=== PATIENT | male | born 1950 | race Caucasian/White ===

== ENCOUNTER 2023-02-11 12:51 | Inpatient (IN) | payer MEDICARE, BC ==
[2023-02-11] MEDS ORDERED: Acetaminophen 325 MG Tab PO PRN (13:50)
[2023-02-11] MEDS ORDERED: Ondansetron 4 MG Tab.DIS PO PRN (13:50)
[2023-02-11] MEDS ORDERED: Melatonin 3 MG Tab PO PRN (13:59)
[2023-02-11] MEDS ORDERED: Albuterol 0.083% 2.5 MG/3 ML Neb Soln INH PRN (13:59)
[2023-02-11] MEDS ORDERED: Vancomycin 1 GM SDV IV SCH (14:00)
[2023-02-11] MEDS ORDERED: Enoxaparin 30 MG/0.3 ML Syringe SUBCUT SCH (14:00)
[2023-02-11] MEDS ORDERED: 50% Dextrose in Water 50 ML Syringe IV PRN (14:03)
[2023-02-11] MEDS ORDERED: Glucose Gel 15 GM in 37.5 GM Tube PO PRN (14:03)
[2023-02-11 14:12] LABS: HEMATOCRIT 27.3 % (38.4-49.7); HEMOGLOBIN 8.5 g/dL (12.9-16.9); MEAN CORPUSCULAR HEMOGLOBIN 29.7 pg (31.6-35.5); MEAN CORPUSCULAR HGB CONC 31.1 g/dL (31.6-35.5); MEAN CORPUSCULAR VOLUME 95.5 fL (81.4-99.0); RED BLOOD CELL COUNT 2.86 M/uL (4.14-5.76); WHITE BLOOD CELL COUNT,WBC 6.6 K/uL (3.2-11.0)
[2023-02-11 14:40] LABS: A/G RATIO 0.8 (1.2-2.2); ALANINE AMINOTRANSFERASE,ALT 22 U/L (12-78); ALBUMIN 2.8 g/dL (3.4-5.0); ALKALINE PHOSPHATASE 126 U/L (46-116); ANION GAP 9.9 mmol/L (5.0-14.0); ASPARTATE AMNIOTRANSFERASE,AST 27 U/L (15-37); BILIRUBIN TOTAL 0.6 mg/dL (0.2-1.0); BLOOD UREA NITROGEN,BUN 29 mg/dL (7-18); CALCIUM 8.1 mg/dL (8.5-10.1); CARBON DIOXIDE,CO2 28 mmol/L (21-32); CHLORIDE,CL 104 mmol/L (100-108); CREATININE 2.2 mg/dL (0.8-1.3); ESTIMATED GFR 31 mL/min (>60); GLUCOSE RANDOM 193 mg/dL (74-106); POTASSIUM,K 4.1 mmol/L (3.6-5.2); PROTEIN TOTAL,TP 6.5 g/dL (6.4-8.2); SODIUM,NA 142 mmol/L (140-148)
[2023-02-11] MEDS ORDERED: Methocarbamol 500 MG Tab PO PRN (15:26)
[2023-02-11] MEDS ORDERED: Simethicone 125 MG Tab.Chew PO PRN (15:33)
[2023-02-11] MEDS: Spironolactone 25 MG Tab PO SCH (16:14)
[2023-02-11] MEDS: Gabapentin 100 MG Cap PO SCH ×2 (16:14→20:50)
[2023-02-11] MEDS: Sucralfate 1 GM Tab PO SCH (16:16)
[2023-02-11] MEDS: Insulin Lispro 100 Unit/ML 3 ML KwikPen SUBCUT SCH ×2 (17:30→22:12)
[2023-02-11] MEDS: Sennosides 8.6 MG Tab PO SCH (20:49)
[2023-02-11] MEDS: Apixaban 5 MG Tab PO SCH (20:49)
[2023-02-11] MEDS: levETIRAcetam 250 MG Tab PO SCH (20:49)
[2023-02-11] MEDS: Potassium Chloride 20 MEQ Tab.ER PO SCH (20:50)
[2023-02-11] MEDS: traZODone 50 MG Tab PO SCH (20:51)
[2023-02-11] MEDS: Insulin Glargine,Human Rec. Analog 100 Units/ML 3 ML Pen SUBCUT SCH (20:52)
[2023-02-12] MEDS: Insulin Lispro 100 Unit/ML 3 ML KwikPen SUBCUT SCH ×4 (08:07→21:35)
[2023-02-12] MEDS: Sucralfate 1 GM Tab PO SCH ×2 (08:08→16:13)
[2023-02-12] MEDS: Potassium Chloride 20 MEQ Tab.ER PO SCH ×2 (08:10→20:55)
[2023-02-12] MEDS: Amiodarone 200 MG Tab PO SCH (08:11)
[2023-02-12] MEDS: Spironolactone 25 MG Tab PO SCH (08:11)
[2023-02-12] MEDS: Apixaban 5 MG Tab PO SCH ×2 (08:12→20:56)
[2023-02-12] MEDS: Sennosides 8.6 MG Tab PO SCH ×2 (08:13→20:56)
[2023-02-12] MEDS: Pantoprazole 40 MG Tab.CR PO SCH (08:13)
[2023-02-12] MEDS: Clopidogrel 75 MG Tab PO SCH (08:14)
[2023-02-12] MEDS: Ferrous Sulfate 325 MG Tab PO SCH (08:15)
[2023-02-12] MEDS: levETIRAcetam 250 MG Tab PO SCH ×2 (08:15→20:55)
[2023-02-12] MEDS: atorvaSTATin 20 MG Tab PO SCH (08:15)
[2023-02-12] MEDS: Multivitamins with Iron/Calcium/Folic Acid/Minerals Tab PO SCH (08:17)
[2023-02-12] MEDS: Gabapentin 100 MG Cap PO SCH ×3 (08:22→20:55)
[2023-02-12] MEDS: traZODone 50 MG Tab PO SCH (20:56)
[2023-02-12] MEDS: Insulin Glargine,Human Rec. Analog 100 Units/ML 3 ML Pen SUBCUT SCH (21:37)
[2023-02-13] MEDS: Insulin Lispro 100 Unit/ML 3 ML KwikPen SUBCUT SCH ×4 (07:49→21:06)
[2023-02-13] MEDS: Sucralfate 1 GM Tab PO SCH ×2 (07:50→16:58)
[2023-02-13] MEDS: Pantoprazole 40 MG Tab.CR PO SCH ×2 (07:50→08:00)
[2023-02-13] MEDS: levETIRAcetam 250 MG Tab PO SCH ×2 (07:59→21:05)
[2023-02-13] MEDS: Gabapentin 100 MG Cap PO SCH ×3 (08:00→21:05)
[2023-02-13] MEDS: Amiodarone 200 MG Tab PO SCH (08:00)
[2023-02-13] MEDS: atorvaSTATin 20 MG Tab PO SCH (08:00)
[2023-02-13] MEDS: Multivitamins with Iron/Calcium/Folic Acid/Minerals Tab PO SCH (08:00)
[2023-02-13] MEDS: Spironolactone 25 MG Tab PO SCH (08:00)
[2023-02-13] MEDS: Ferrous Sulfate 325 MG Tab PO SCH (08:00)
[2023-02-13] MEDS: Sennosides 8.6 MG Tab PO SCH ×2 (08:00→21:06)
[2023-02-13] MEDS: Apixaban 5 MG Tab PO SCH ×2 (08:01→21:05)
[2023-02-13] MEDS: Clopidogrel 75 MG Tab PO SCH (08:01)
[2023-02-13] MEDS: Potassium Chloride 20 MEQ Tab.ER PO SCH ×2 (08:01→21:05)
[2023-02-13] MEDS: Insulin Glargine,Human Rec. Analog 100 Units/ML 3 ML Pen SUBCUT SCH (21:04)
[2023-02-13] MEDS: traZODone 50 MG Tab PO SCH (21:05)
[2023-02-14] MEDS: Multivitamins with Iron/Calcium/Folic Acid/Minerals Tab PO SCH (08:03)
[2023-02-14] MEDS: Gabapentin 100 MG Cap PO SCH ×3 (08:04→21:00)
[2023-02-14] MEDS: Clopidogrel 75 MG Tab PO SCH (08:04)
[2023-02-14] MEDS: levETIRAcetam 250 MG Tab PO SCH ×2 (08:04→20:58)
[2023-02-14] MEDS: Spironolactone 25 MG Tab PO SCH (08:04)
[2023-02-14] MEDS: atorvaSTATin 20 MG Tab PO SCH (08:04)
[2023-02-14] MEDS: Sennosides 8.6 MG Tab PO SCH ×2 (08:04→21:00)
[2023-02-14] MEDS: Potassium Chloride 20 MEQ Tab.ER PO SCH ×2 (08:04→20:59)
[2023-02-14] MEDS: Sucralfate 1 GM Tab PO SCH ×2 (08:04→17:16)
[2023-02-14] MEDS: Amiodarone 200 MG Tab PO SCH (08:05)
[2023-02-14] MEDS: Ferrous Sulfate 325 MG Tab PO SCH (08:05)
[2023-02-14] MEDS: Pantoprazole 40 MG Tab.CR PO SCH (08:05)
[2023-02-14] MEDS: Apixaban 5 MG Tab PO SCH ×2 (08:05→20:58)
[2023-02-14] MEDS: Insulin Lispro 100 Unit/ML 3 ML KwikPen SUBCUT SCH ×4 (08:09→20:53)
[2023-02-14 17:10] LABS: CREATININE 2.1 mg/dL (0.8-1.3); EST CRCL DRUG DOSING (CG) 32.83 mL/min; VANCOMYCIN TROUGH 14.6 ug/mL (10.0-20.0)
[2023-02-14] MEDS: Insulin Glargine,Human Rec. Analog 100 Units/ML 3 ML Pen SUBCUT SCH (20:59)
[2023-02-14] MEDS: traZODone 50 MG Tab PO SCH (21:00)
[2023-02-15] MEDS: Sucralfate 1 GM Tab PO SCH ×2 (07:54→16:17)
[2023-02-15] MEDS: Insulin Lispro 100 Unit/ML 3 ML KwikPen SUBCUT SCH ×4 (07:54→20:44)
[2023-02-15] MEDS: Ferrous Sulfate 325 MG Tab PO SCH (08:04)
[2023-02-15] MEDS: Gabapentin 100 MG Cap PO SCH ×3 (08:04→20:41)
[2023-02-15] MEDS: Spironolactone 25 MG Tab PO SCH (08:04)
[2023-02-15] MEDS: levETIRAcetam 250 MG Tab PO SCH ×2 (08:04→20:43)
[2023-02-15] MEDS: Multivitamins with Iron/Calcium/Folic Acid/Minerals Tab PO SCH (08:05)
[2023-02-15] MEDS: atorvaSTATin 20 MG Tab PO SCH (08:05)
[2023-02-15] MEDS: Apixaban 5 MG Tab PO SCH ×2 (08:05→20:42)
[2023-02-15] MEDS: Sennosides 8.6 MG Tab PO SCH ×2 (08:05→20:42)
[2023-02-15] MEDS: Potassium Chloride 20 MEQ Tab.ER PO SCH ×2 (08:05→20:42)
[2023-02-15] MEDS: Clopidogrel 75 MG Tab PO SCH (08:05)
[2023-02-15] MEDS: Amiodarone 200 MG Tab PO SCH (08:05)
[2023-02-15] MEDS: Pantoprazole 40 MG Tab.CR PO SCH (08:06)
[2023-02-15] MEDS: traZODone 50 MG Tab PO SCH (20:42)
[2023-02-15] MEDS: Insulin Glargine,Human Rec. Analog 100 Units/ML 3 ML Pen SUBCUT SCH (20:44)
[2023-02-16] MEDS: Insulin Lispro 100 Unit/ML 3 ML KwikPen SUBCUT SCH ×4 (07:54→21:28)
[2023-02-16] MEDS: Gabapentin 100 MG Cap PO SCH ×3 (08:01→20:18)
[2023-02-16] MEDS: Sucralfate 1 GM Tab PO SCH ×2 (08:01→17:15)
[2023-02-16] MEDS: levETIRAcetam 250 MG Tab PO SCH ×2 (08:01→20:18)
[2023-02-16] MEDS: Spironolactone 25 MG Tab PO SCH (08:01)
[2023-02-16] MEDS: Clopidogrel 75 MG Tab PO SCH (08:01)
[2023-02-16] MEDS: Multivitamins with Iron/Calcium/Folic Acid/Minerals Tab PO SCH (08:01)
[2023-02-16] MEDS: atorvaSTATin 20 MG Tab PO SCH (08:02)
[2023-02-16] MEDS: Pantoprazole 40 MG Tab.CR PO SCH (08:02)
[2023-02-16] MEDS: Amiodarone 200 MG Tab PO SCH (08:02)
[2023-02-16] MEDS: Ferrous Sulfate 325 MG Tab PO SCH (08:02)
[2023-02-16] MEDS: Apixaban 5 MG Tab PO SCH ×2 (08:02→20:18)
[2023-02-16] MEDS: Potassium Chloride 20 MEQ Tab.ER PO SCH ×2 (08:02→20:18)
[2023-02-16] MEDS: Sennosides 8.6 MG Tab PO SCH ×2 (08:03→20:18)
[2023-02-16] MEDS: traZODone 50 MG Tab PO SCH (20:18)
[2023-02-16] MEDS: Insulin Glargine,Human Rec. Analog 100 Units/ML 3 ML Pen SUBCUT SCH (21:26)
[2023-02-17 06:21] LABS: EST CRCL DRUG DOSING (CG) 34.56 mL/min; VANCOMYCIN RANDOM 17.7 ug/mL (0.0-50.0)
[2023-02-17] MEDS: Insulin Lispro 100 Unit/ML 3 ML KwikPen SUBCUT SCH ×4 (08:37→21:24)
[2023-02-17] MEDS: Sucralfate 1 GM Tab PO SCH ×2 (08:42→16:53)
[2023-02-17] MEDS: Amiodarone 200 MG Tab PO SCH (08:43)
[2023-02-17] MEDS: Spironolactone 25 MG Tab PO SCH (08:43)
[2023-02-17] MEDS: Ferrous Sulfate 325 MG Tab PO SCH (08:46)
[2023-02-17] MEDS: Apixaban 5 MG Tab PO SCH ×2 (08:46→20:17)
[2023-02-17] MEDS: levETIRAcetam 250 MG Tab PO SCH ×2 (08:47→20:18)
[2023-02-17] MEDS: Potassium Chloride 20 MEQ Tab.ER PO SCH ×2 (08:48→20:18)
[2023-02-17] MEDS: atorvaSTATin 20 MG Tab PO SCH (08:48)
[2023-02-17] MEDS: Gabapentin 100 MG Cap PO SCH ×3 (08:49→20:18)
[2023-02-17] MEDS: Pantoprazole 40 MG Tab.CR PO SCH (08:50)
[2023-02-17] MEDS: Clopidogrel 75 MG Tab PO SCH (08:50)
[2023-02-17] MEDS: Multivitamins with Iron/Calcium/Folic Acid/Minerals Tab PO SCH (08:51)
[2023-02-17] MEDS: Sennosides 8.6 MG Tab PO SCH ×2 (08:51→20:18)
[2023-02-17] MEDS: traZODone 50 MG Tab PO SCH (20:19)
[2023-02-17] MEDS: Vancomycin 0.9 GM in Sodium Chloride 0.9% 250 ML IV SCH (21:18)
[2023-02-17] MEDS: Insulin Glargine,Human Rec. Analog 100 Units/ML 3 ML Pen SUBCUT SCH (21:23)
[2023-02-18] MEDS: Amiodarone 200 MG Tab PO SCH (08:37)
[2023-02-18] MEDS: Spironolactone 25 MG Tab PO SCH (08:37)
[2023-02-18] MEDS: Sucralfate 1 GM Tab PO SCH ×2 (08:37→17:42)
[2023-02-18] MEDS: Apixaban 5 MG Tab PO SCH ×2 (08:38→21:18)
[2023-02-18] MEDS: Gabapentin 100 MG Cap PO SCH ×3 (08:39→21:18)
[2023-02-18] MEDS: Ferrous Sulfate 325 MG Tab PO SCH (08:39)
[2023-02-18] MEDS: Pantoprazole 40 MG Tab.CR PO SCH (08:39)
[2023-02-18] MEDS: Potassium Chloride 20 MEQ Tab.ER PO SCH ×2 (08:39→21:18)
[2023-02-18] MEDS: atorvaSTATin 20 MG Tab PO SCH (08:39)
[2023-02-18] MEDS: Clopidogrel 75 MG Tab PO SCH (08:39)
[2023-02-18] MEDS: levETIRAcetam 250 MG Tab PO SCH ×2 (08:39→21:18)
[2023-02-18] MEDS: Sennosides 8.6 MG Tab PO SCH ×2 (08:40→21:19)
[2023-02-18] MEDS: Multivitamins with Iron/Calcium/Folic Acid/Minerals Tab PO SCH (08:40)
[2023-02-18] MEDS: Insulin Lispro 100 Unit/ML 3 ML KwikPen SUBCUT SCH ×4 (08:43→21:16)
[2023-02-18] MEDS: Vancomycin 0.9 GM in Sodium Chloride 0.9% 250 ML IV SCH (19:57)
[2023-02-18] MEDS: Insulin Glargine,Human Rec. Analog 100 Units/ML 3 ML Pen SUBCUT SCH (21:17)
[2023-02-18] MEDS: traZODone 50 MG Tab PO SCH (21:19)
[2023-02-19] MEDS: Insulin Lispro 100 Unit/ML 3 ML KwikPen SUBCUT SCH ×4 (08:09→21:12)
[2023-02-19] MEDS: Sennosides 8.6 MG Tab PO SCH ×2 (08:10→20:26)
[2023-02-19] MEDS: Sucralfate 1 GM Tab PO SCH ×2 (08:10→17:06)
[2023-02-19] MEDS: Amiodarone 200 MG Tab PO SCH (08:10)
[2023-02-19] MEDS: Potassium Chloride 20 MEQ Tab.ER PO SCH ×2 (08:10→20:25)
[2023-02-19] MEDS: Clopidogrel 75 MG Tab PO SCH (08:10)
[2023-02-19] MEDS: Gabapentin 100 MG Cap PO SCH ×3 (08:10→20:25)
[2023-02-19] MEDS: Multivitamins with Iron/Calcium/Folic Acid/Minerals Tab PO SCH (08:10)
[2023-02-19] MEDS: Apixaban 5 MG Tab PO SCH ×2 (08:10→20:26)
[2023-02-19] MEDS: levETIRAcetam 250 MG Tab PO SCH ×2 (08:11→20:26)
[2023-02-19] MEDS: atorvaSTATin 20 MG Tab PO SCH (08:11)
[2023-02-19] MEDS: Spironolactone 25 MG Tab PO SCH (08:11)
[2023-02-19] MEDS: Pantoprazole 40 MG Tab.CR PO SCH (08:11)
[2023-02-19] MEDS: Ferrous Sulfate 325 MG Tab PO SCH (08:11)
[2023-02-19] MEDS: Vancomycin 0.9 GM in Sodium Chloride 0.9% 250 ML IV SCH (20:21)
[2023-02-19] MEDS: traZODone 50 MG Tab PO SCH (20:27)
[2023-02-19] MEDS: Insulin Glargine,Human Rec. Analog 100 Units/ML 3 ML Pen SUBCUT SCH (21:11)
[2023-02-20] MEDS: Insulin Lispro 100 Unit/ML 3 ML KwikPen SUBCUT SCH ×4 (07:51→21:24)
[2023-02-20] MEDS: Sucralfate 1 GM Tab PO SCH ×2 (07:53→17:17)
[2023-02-20] MEDS: Spironolactone 25 MG Tab PO SCH (08:31)
[2023-02-20] MEDS: levETIRAcetam 250 MG Tab PO SCH ×2 (08:31→20:24)
[2023-02-20] MEDS: Sennosides 8.6 MG Tab PO SCH ×2 (08:31→20:25)
[2023-02-20] MEDS: Ferrous Sulfate 325 MG Tab PO SCH (08:31)
[2023-02-20] MEDS: Gabapentin 100 MG Cap PO SCH ×3 (08:31→20:24)
[2023-02-20] MEDS: Pantoprazole 40 MG Tab.CR PO SCH (08:31)
[2023-02-20] MEDS: atorvaSTATin 20 MG Tab PO SCH (08:32)
[2023-02-20] MEDS: Multivitamins with Iron/Calcium/Folic Acid/Minerals Tab PO SCH (08:32)
[2023-02-20] MEDS: Clopidogrel 75 MG Tab PO SCH (08:32)
[2023-02-20] MEDS: Potassium Chloride 20 MEQ Tab.ER PO SCH ×2 (08:32→20:24)
[2023-02-20] MEDS: Apixaban 5 MG Tab PO SCH ×2 (08:32→20:25)
[2023-02-20] MEDS: Amiodarone 200 MG Tab PO SCH (08:35)
[2023-02-20] MEDS: Vancomycin 0.9 GM in Sodium Chloride 0.9% 250 ML IV SCH (20:22)
[2023-02-20] MEDS: traZODone 50 MG Tab PO SCH (20:24)
[2023-02-20] MEDS: Insulin Glargine,Human Rec. Analog 100 Units/ML 3 ML Pen SUBCUT SCH (21:31)
[2023-02-21 06:45] LABS: EST CRCL DRUG DOSING (CG) 34.56 mL/min
[2023-02-21] MEDS: Insulin Lispro 100 Unit/ML 3 ML KwikPen SUBCUT SCH ×4 (07:50→21:21)
[2023-02-21] MEDS: Sucralfate 1 GM Tab PO SCH ×2 (07:51→16:59)
[2023-02-21] MEDS: Pantoprazole 40 MG Tab.CR PO SCH (08:06)
[2023-02-21] MEDS: Sennosides 8.6 MG Tab PO SCH ×2 (08:06→20:00)
[2023-02-21] MEDS: Ferrous Sulfate 325 MG Tab PO SCH (08:06)
[2023-02-21] MEDS: Multivitamins with Iron/Calcium/Folic Acid/Minerals Tab PO SCH (08:06)
[2023-02-21] MEDS: Clopidogrel 75 MG Tab PO SCH (08:06)
[2023-02-21] MEDS: Spironolactone 25 MG Tab PO SCH (08:06)
[2023-02-21] MEDS: Potassium Chloride 20 MEQ Tab.ER PO SCH ×2 (08:06→20:00)
[2023-02-21] MEDS: Amiodarone 200 MG Tab PO SCH (08:06)
[2023-02-21] MEDS: levETIRAcetam 250 MG Tab PO SCH ×2 (08:07→19:59)
[2023-02-21] MEDS: Apixaban 5 MG Tab PO SCH ×2 (08:07→19:59)
[2023-02-21] MEDS: Gabapentin 100 MG Cap PO SCH ×3 (08:08→19:59)
[2023-02-21] MEDS: atorvaSTATin 20 MG Tab PO SCH (08:08)
[2023-02-21] MEDS: Bisacodyl 5 MG Tab PO SCH ×2 (11:08→19:59)
[2023-02-21] MEDS: traZODone 50 MG Tab PO SCH (19:59)
[2023-02-21] MEDS: Insulin Glargine,Human Rec. Analog 100 Units/ML 3 ML Pen SUBCUT SCH (21:21)
[2023-02-22] MEDS: Insulin Lispro 100 Unit/ML 3 ML KwikPen SUBCUT SCH ×4 (08:01→21:45)
[2023-02-22] MEDS: Bisacodyl 5 MG Tab PO SCH ×2 (08:03→20:39)
[2023-02-22] MEDS: Gabapentin 100 MG Cap PO SCH ×3 (08:03→20:39)
[2023-02-22] MEDS: Sennosides 8.6 MG Tab PO SCH ×2 (08:03→20:39)
[2023-02-22] MEDS: Amiodarone 200 MG Tab PO SCH (08:04)
[2023-02-22] MEDS: Clopidogrel 75 MG Tab PO SCH (08:04)
[2023-02-22] MEDS: Sucralfate 1 GM Tab PO SCH ×2 (08:04→17:07)
[2023-02-22] MEDS: levETIRAcetam 250 MG Tab PO SCH ×2 (08:04→20:40)
[2023-02-22] MEDS: Apixaban 5 MG Tab PO SCH ×2 (08:04→20:40)
[2023-02-22] MEDS: Ferrous Sulfate 325 MG Tab PO SCH (08:04)
[2023-02-22] MEDS: Pantoprazole 40 MG Tab.CR PO SCH (08:05)
[2023-02-22] MEDS: Spironolactone 25 MG Tab PO SCH (08:05)
[2023-02-22] MEDS: Potassium Chloride 20 MEQ Tab.ER PO SCH ×2 (08:05→20:39)
[2023-02-22] MEDS: atorvaSTATin 20 MG Tab PO SCH (08:05)
[2023-02-22] MEDS: Multivitamins with Iron/Calcium/Folic Acid/Minerals Tab PO SCH (08:05)
[2023-02-22] MEDS: Polyethylene Glycol 3350 Powder 17 GM Packet PO PRN (12:58)
[2023-02-22] MEDS: traZODone 50 MG Tab PO SCH (20:40)
[2023-02-22] MEDS: Insulin Glargine,Human Rec. Analog 100 Units/ML 3 ML Pen SUBCUT SCH (21:46)
[2023-02-23] MEDS: Insulin Lispro 100 Unit/ML 3 ML KwikPen SUBCUT SCH ×4 (08:48→21:06)
[2023-02-23] MEDS: Gabapentin 100 MG Cap PO SCH ×3 (08:49→20:37)
[2023-02-23] MEDS: Multivitamins with Iron/Calcium/Folic Acid/Minerals Tab PO SCH (08:49)
[2023-02-23] MEDS: atorvaSTATin 20 MG Tab PO SCH (08:49)
[2023-02-23] MEDS: Spironolactone 25 MG Tab PO SCH (08:49)
[2023-02-23] MEDS: Bisacodyl 5 MG Tab PO SCH ×2 (08:49→20:39)
[2023-02-23] MEDS: Sucralfate 1 GM Tab PO SCH ×2 (08:49→16:32)
[2023-02-23] MEDS: Ferrous Sulfate 325 MG Tab PO SCH (08:50)
[2023-02-23] MEDS: Pantoprazole 40 MG Tab.CR PO SCH (08:50)
[2023-02-23] MEDS: Sennosides 8.6 MG Tab PO SCH ×2 (08:50→20:38)
[2023-02-23] MEDS: Clopidogrel 75 MG Tab PO SCH (08:50)
[2023-02-23] MEDS: Potassium Chloride 20 MEQ Tab.ER PO SCH ×2 (08:50→20:39)
[2023-02-23] MEDS: Apixaban 5 MG Tab PO SCH ×2 (08:51→20:39)
[2023-02-23] MEDS: Amiodarone 200 MG Tab PO SCH (08:51)
[2023-02-23] MEDS: levETIRAcetam 250 MG Tab PO SCH ×2 (08:51→20:39)
[2023-02-23] MEDS: traZODone 50 MG Tab PO SCH (20:37)
[2023-02-23] MEDS: Insulin Glargine,Human Rec. Analog 100 Units/ML 3 ML Pen SUBCUT SCH (21:58)
[2023-02-24] MEDS: Bisacodyl 5 MG Tab PO SCH ×2 (08:18→21:34)
[2023-02-24] MEDS: Amiodarone 200 MG Tab PO SCH (08:19)
[2023-02-24] MEDS: Potassium Chloride 20 MEQ Tab.ER PO SCH ×2 (08:19→21:33)
[2023-02-24] MEDS: Multivitamins with Iron/Calcium/Folic Acid/Minerals Tab PO SCH (08:19)
[2023-02-24] MEDS: atorvaSTATin 20 MG Tab PO SCH (08:19)
[2023-02-24] MEDS: Apixaban 5 MG Tab PO SCH ×2 (08:19→21:33)
[2023-02-24] MEDS: Gabapentin 100 MG Cap PO SCH ×3 (08:19→21:32)
[2023-02-24] MEDS: Pantoprazole 40 MG Tab.CR PO SCH (08:19)
[2023-02-24] MEDS: Clopidogrel 75 MG Tab PO SCH (08:19)
[2023-02-24] MEDS: levETIRAcetam 250 MG Tab PO SCH ×2 (08:19→21:33)
[2023-02-24] MEDS: Sucralfate 1 GM Tab PO SCH ×3 (08:20→15:40)
[2023-02-24] MEDS: Sennosides 8.6 MG Tab PO SCH ×2 (08:20→21:33)
[2023-02-24] MEDS: Ferrous Sulfate 325 MG Tab PO SCH (08:20)
[2023-02-24] MEDS: Insulin Lispro 100 Unit/ML 3 ML KwikPen SUBCUT SCH ×4 (08:20→21:22)
[2023-02-24] MEDS: Spironolactone 25 MG Tab PO SCH (08:20)
[2023-02-24] MEDS: Insulin Glargine,Human Rec. Analog 100 Units/ML 3 ML Pen SUBCUT SCH (21:29)
[2023-02-24] MEDS: traZODone 50 MG Tab PO SCH (21:31)
[2023-02-25] MEDS: Insulin Lispro 100 Unit/ML 3 ML KwikPen SUBCUT SCH ×4 (07:48→21:16)
[2023-02-25] MEDS: Sucralfate 1 GM Tab PO SCH ×2 (07:51→15:34)
[2023-02-25] MEDS: levETIRAcetam 250 MG Tab PO SCH ×2 (09:11→21:24)
[2023-02-25] MEDS: Amiodarone 200 MG Tab PO SCH (09:12)
[2023-02-25] MEDS: Clopidogrel 75 MG Tab PO SCH (09:12)
[2023-02-25] MEDS: Ferrous Sulfate 325 MG Tab PO SCH (09:12)
[2023-02-25] MEDS: Spironolactone 25 MG Tab PO SCH (09:14)
[2023-02-25] MEDS: Gabapentin 100 MG Cap PO SCH ×3 (09:18→21:24)
[2023-02-25] MEDS: Apixaban 5 MG Tab PO SCH ×2 (09:18→21:24)
[2023-02-25] MEDS: atorvaSTATin 20 MG Tab PO SCH (09:18)
[2023-02-25] MEDS: Bisacodyl 5 MG Tab PO SCH ×2 (09:18→21:24)
[2023-02-25] MEDS: Potassium Chloride 20 MEQ Tab.ER PO SCH ×2 (09:18→21:24)
[2023-02-25] MEDS: Multivitamins with Iron/Calcium/Folic Acid/Minerals Tab PO SCH (09:19)
[2023-02-25] MEDS: Pantoprazole 40 MG Tab.CR PO SCH (09:19)
[2023-02-25] MEDS: Sennosides 8.6 MG Tab PO SCH ×2 (09:19→21:25)
[2023-02-25] MEDS: Polyethylene Glycol 3350 Powder 17 GM Packet PO PRN (10:45)
[2023-02-25 14:30] LABS: CREATININE 2.1 mg/dL (0.8-1.3); EST CRCL DRUG DOSING (CG) 32.91 mL/min; VANCOMYCIN RANDOM 16.7 ug/mL (0.0-50.0)
[2023-02-25] MEDS: Insulin Glargine,Human Rec. Analog 100 Units/ML 3 ML Pen SUBCUT SCH (21:18)
[2023-02-25] MEDS: traZODone 50 MG Tab PO SCH (21:27)
[2023-02-26] MEDS: Sucralfate 1 GM Tab PO SCH ×2 (07:11→15:54)
[2023-02-26] MEDS: Insulin Lispro 100 Unit/ML 3 ML KwikPen SUBCUT SCH ×4 (08:07→21:16)
[2023-02-26] MEDS: Bisacodyl 5 MG Tab PO SCH ×2 (08:11→21:18)
[2023-02-26] MEDS: Clopidogrel 75 MG Tab PO SCH (08:11)
[2023-02-26] MEDS: Potassium Chloride 20 MEQ Tab.ER PO SCH ×2 (08:11→21:20)
[2023-02-26] MEDS: Amiodarone 200 MG Tab PO SCH (08:11)
[2023-02-26] MEDS: atorvaSTATin 20 MG Tab PO SCH (08:11)
[2023-02-26] MEDS: Sennosides 8.6 MG Tab PO SCH ×2 (08:11→21:21)
[2023-02-26] MEDS: Gabapentin 100 MG Cap PO SCH ×3 (08:11→21:20)
[2023-02-26] MEDS: Multivitamins with Iron/Calcium/Folic Acid/Minerals Tab PO SCH (08:12)
[2023-02-26] MEDS: Apixaban 5 MG Tab PO SCH ×2 (08:12→21:18)
[2023-02-26] MEDS: levETIRAcetam 250 MG Tab PO SCH ×2 (08:12→21:19)
[2023-02-26] MEDS: Pantoprazole 40 MG Tab.CR PO SCH (08:12)
[2023-02-26] MEDS: Spironolactone 25 MG Tab PO SCH (08:12)
[2023-02-26] MEDS: Ferrous Sulfate 325 MG Tab PO SCH (08:12)
[2023-02-26] MEDS: Insulin Glargine,Human Rec. Analog 100 Units/ML 3 ML Pen SUBCUT SCH (21:16)
[2023-02-26] MEDS: traZODone 50 MG Tab PO SCH (21:20)
[2023-02-27] MEDS: Insulin Lispro 100 Unit/ML 3 ML KwikPen SUBCUT SCH ×4 (08:50→21:24)
[2023-02-27] MEDS: Gabapentin 100 MG Cap PO SCH ×3 (08:52→21:27)
[2023-02-27] MEDS: levETIRAcetam 250 MG Tab PO SCH ×2 (08:53→21:28)
[2023-02-27] MEDS: Spironolactone 25 MG Tab PO SCH (08:53)
[2023-02-27] MEDS: Potassium Chloride 20 MEQ Tab.ER PO SCH ×2 (08:53→21:27)
[2023-02-27] MEDS: Multivitamins with Iron/Calcium/Folic Acid/Minerals Tab PO SCH (08:54)
[2023-02-27] MEDS: Amiodarone 200 MG Tab PO SCH (08:54)
[2023-02-27] MEDS: Ferrous Sulfate 325 MG Tab PO SCH (08:54)
[2023-02-27] MEDS: Pantoprazole 40 MG Tab.CR PO SCH (08:54)
[2023-02-27] MEDS: Sennosides 8.6 MG Tab PO SCH ×2 (08:54→21:28)
[2023-02-27] MEDS: Clopidogrel 75 MG Tab PO SCH (08:55)
[2023-02-27] MEDS: Apixaban 5 MG Tab PO SCH ×2 (08:55→21:29)
[2023-02-27] MEDS: Sucralfate 1 GM Tab PO SCH ×2 (08:55→17:13)
[2023-02-27] MEDS: Bisacodyl 5 MG Tab PO SCH ×2 (08:55→21:29)
[2023-02-27] MEDS: atorvaSTATin 20 MG Tab PO SCH (08:55)
[2023-02-27] MEDS: Insulin Glargine,Human Rec. Analog 100 Units/ML 3 ML Pen SUBCUT SCH (21:25)
[2023-02-27] MEDS: traZODone 50 MG Tab PO SCH (21:27)
[2023-02-28] MEDS: Insulin Lispro 100 Unit/ML 3 ML KwikPen SUBCUT SCH ×4 (07:28→21:44)
[2023-02-28] MEDS: Sucralfate 1 GM Tab PO SCH ×2 (07:41→16:39)
[2023-02-28] MEDS: Spironolactone 25 MG Tab PO SCH (08:07)
[2023-02-28] MEDS: Apixaban 5 MG Tab PO SCH ×2 (08:07→21:45)
[2023-02-28] MEDS: Amiodarone 200 MG Tab PO SCH (08:08)
[2023-02-28] MEDS: Ferrous Sulfate 325 MG Tab PO SCH (08:08)
[2023-02-28] MEDS: levETIRAcetam 250 MG Tab PO SCH ×2 (08:08→21:45)
[2023-02-28] MEDS: Bisacodyl 5 MG Tab PO SCH ×2 (08:08→21:45)
[2023-02-28] MEDS: Potassium Chloride 20 MEQ Tab.ER PO SCH ×2 (08:09→21:45)
[2023-02-28] MEDS: Pantoprazole 40 MG Tab.CR PO SCH (08:09)
[2023-02-28] MEDS: Clopidogrel 75 MG Tab PO SCH (08:09)
[2023-02-28] MEDS: atorvaSTATin 20 MG Tab PO SCH (08:09)
[2023-02-28] MEDS: Sennosides 8.6 MG Tab PO SCH ×2 (08:10→21:47)
[2023-02-28] MEDS: Gabapentin 100 MG Cap PO SCH ×3 (08:10→21:46)
[2023-02-28] MEDS: Multivitamins with Iron/Calcium/Folic Acid/Minerals Tab PO SCH (08:10)
[2023-02-28] MEDS: Insulin Glargine,Human Rec. Analog 100 Units/ML 3 ML Pen SUBCUT SCH (21:45)
[2023-02-28] MEDS: traZODone 50 MG Tab PO SCH (21:47)
[2023-03-01 06:26] LABS: CREATININE 2.1 mg/dL (0.8-1.3); EST CRCL DRUG DOSING (CG) 32.91 mL/min; VANCOMYCIN RANDOM 20.6 ug/mL (0.0-50.0)
[2023-03-01] MEDS: atorvaSTATin 20 MG Tab PO SCH (08:57)
[2023-03-01] MEDS: Sucralfate 1 GM Tab PO SCH ×2 (08:57→15:40)
[2023-03-01] MEDS: Gabapentin 100 MG Cap PO SCH ×3 (08:57→20:55)
[2023-03-01] MEDS: Bisacodyl 5 MG Tab PO SCH ×2 (08:57→20:54)
[2023-03-01] MEDS: levETIRAcetam 250 MG Tab PO SCH ×2 (08:57→20:55)
[2023-03-01] MEDS: Clopidogrel 75 MG Tab PO SCH (08:58)
[2023-03-01] MEDS: Spironolactone 25 MG Tab PO SCH (08:58)
[2023-03-01] MEDS: Pantoprazole 40 MG Tab.CR PO SCH (08:58)
[2023-03-01] MEDS: Apixaban 5 MG Tab PO SCH ×2 (08:58→20:54)
[2023-03-01] MEDS: Potassium Chloride 20 MEQ Tab.ER PO SCH ×2 (08:58→20:55)
[2023-03-01] MEDS: Amiodarone 200 MG Tab PO SCH (08:58)
[2023-03-01] MEDS: Sennosides 8.6 MG Tab PO SCH ×2 (08:59→20:55)
[2023-03-01] MEDS: Ferrous Sulfate 325 MG Tab PO SCH (08:59)
[2023-03-01] MEDS: Multivitamins with Iron/Calcium/Folic Acid/Minerals Tab PO SCH (08:59)
[2023-03-01] MEDS: Insulin Lispro 100 Unit/ML 3 ML KwikPen SUBCUT SCH ×4 (09:06→21:07)
[2023-03-01] MEDS: traZODone 50 MG Tab PO SCH (20:56)
[2023-03-01] MEDS: Insulin Glargine,Human Rec. Analog 100 Units/ML 3 ML Pen SUBCUT SCH (21:16)
[2023-03-02] MEDS: Insulin Lispro 100 Unit/ML 3 ML KwikPen SUBCUT SCH ×4 (07:40→21:04)
[2023-03-02] MEDS: Sucralfate 1 GM Tab PO SCH ×2 (07:41→16:56)
[2023-03-02] MEDS: atorvaSTATin 20 MG Tab PO SCH (08:38)
[2023-03-02] MEDS: Potassium Chloride 20 MEQ Tab.ER PO SCH ×2 (08:38→21:03)
[2023-03-02] MEDS: Apixaban 5 MG Tab PO SCH ×2 (08:38→21:03)
[2023-03-02] MEDS: Ferrous Sulfate 325 MG Tab PO SCH (08:38)
[2023-03-02] MEDS: Spironolactone 25 MG Tab PO SCH (08:38)
[2023-03-02] MEDS: levETIRAcetam 250 MG Tab PO SCH ×2 (08:38→21:03)
[2023-03-02] MEDS: Bisacodyl 5 MG Tab PO SCH ×2 (08:38→21:03)
[2023-03-02] MEDS: Gabapentin 100 MG Cap PO SCH ×3 (08:38→21:03)
[2023-03-02] MEDS: Amiodarone 200 MG Tab PO SCH (08:39)
[2023-03-02] MEDS: Multivitamins with Iron/Calcium/Folic Acid/Minerals Tab PO SCH (08:39)
[2023-03-02] MEDS: Clopidogrel 75 MG Tab PO SCH (08:39)
[2023-03-02] MEDS: Sennosides 8.6 MG Tab PO SCH ×2 (08:39→21:03)
[2023-03-02] MEDS: Pantoprazole 40 MG Tab.CR PO SCH (08:39)
[2023-03-02] MEDS: traZODone 50 MG Tab PO SCH (21:03)
[2023-03-02] MEDS: Insulin Glargine,Human Rec. Analog 100 Units/ML 3 ML Pen SUBCUT SCH (21:04)
[2023-03-03] MEDS: Insulin Lispro 100 Unit/ML 3 ML KwikPen SUBCUT SCH ×4 (08:31→21:05)
[2023-03-03] MEDS: Sucralfate 1 GM Tab PO SCH ×2 (08:32→15:40)
[2023-03-03] MEDS: Multivitamins with Iron/Calcium/Folic Acid/Minerals Tab PO SCH (08:34)
[2023-03-03] MEDS: Spironolactone 25 MG Tab PO SCH (08:35)
[2023-03-03] MEDS: atorvaSTATin 20 MG Tab PO SCH (08:35)
[2023-03-03] MEDS: Sennosides 8.6 MG Tab PO SCH ×2 (08:35→21:01)
[2023-03-03] MEDS: Gabapentin 100 MG Cap PO SCH ×3 (08:35→21:01)
[2023-03-03] MEDS: levETIRAcetam 250 MG Tab PO SCH ×2 (08:35→21:00)
[2023-03-03] MEDS: Clopidogrel 75 MG Tab PO SCH (08:36)
[2023-03-03] MEDS: Amiodarone 200 MG Tab PO SCH (08:36)
[2023-03-03] MEDS: Potassium Chloride 20 MEQ Tab.ER PO SCH ×2 (08:36→21:00)
[2023-03-03] MEDS: Ferrous Sulfate 325 MG Tab PO SCH (08:36)
[2023-03-03] MEDS: Apixaban 5 MG Tab PO SCH ×2 (08:36→21:00)
[2023-03-03] MEDS: Bisacodyl 5 MG Tab PO SCH ×2 (08:36→21:00)
[2023-03-03] MEDS: Pantoprazole 40 MG Tab.CR PO SCH (08:37)
[2023-03-03] MEDS: traZODone 50 MG Tab PO SCH (21:01)
[2023-03-03] MEDS: Insulin Glargine,Human Rec. Analog 100 Units/ML 3 ML Pen SUBCUT SCH (21:02)
[2023-03-04] MEDS: Insulin Lispro 100 Unit/ML 3 ML KwikPen SUBCUT SCH ×4 (08:27→21:07)
[2023-03-04] MEDS: Clopidogrel 75 MG Tab PO SCH (08:33)
[2023-03-04] MEDS: Gabapentin 100 MG Cap PO SCH ×3 (08:33→21:10)
[2023-03-04] MEDS: Pantoprazole 40 MG Tab.CR PO SCH (08:34)
[2023-03-04] MEDS: Sennosides 8.6 MG Tab PO SCH ×2 (08:34→21:11)
[2023-03-04] MEDS: Sucralfate 1 GM Tab PO SCH ×3 (08:34→17:25)
[2023-03-04] MEDS: atorvaSTATin 20 MG Tab PO SCH (08:34)
[2023-03-04] MEDS: Amiodarone 200 MG Tab PO SCH (08:34)
[2023-03-04] MEDS: Multivitamins with Iron/Calcium/Folic Acid/Minerals Tab PO SCH (08:34)
[2023-03-04] MEDS: Apixaban 5 MG Tab PO SCH ×2 (08:35→21:10)
[2023-03-04] MEDS: Spironolactone 25 MG Tab PO SCH (08:35)
[2023-03-04] MEDS: Potassium Chloride 20 MEQ Tab.ER PO SCH ×2 (08:35→21:11)
[2023-03-04] MEDS: Bisacodyl 5 MG Tab PO SCH ×2 (08:35→21:11)
[2023-03-04] MEDS: Ferrous Sulfate 325 MG Tab PO SCH (08:35)
[2023-03-04] MEDS: levETIRAcetam 250 MG Tab PO SCH ×2 (08:35→21:10)
[2023-03-04] MEDS: Insulin Glargine,Human Rec. Analog 100 Units/ML 3 ML Pen SUBCUT SCH (21:08)
[2023-03-04] MEDS: traZODone 50 MG Tab PO SCH (21:11)
[2023-03-05] MEDS: Insulin Lispro 100 Unit/ML 3 ML KwikPen SUBCUT SCH ×4 (07:38→20:54)
[2023-03-05] MEDS: Sucralfate 1 GM Tab PO SCH ×2 (07:38→16:44)
[2023-03-05] MEDS: Gabapentin 100 MG Cap PO SCH ×3 (08:18→20:57)
[2023-03-05] MEDS: Amiodarone 200 MG Tab PO SCH (08:18)
[2023-03-05] MEDS: Sennosides 8.6 MG Tab PO SCH ×2 (08:18→20:57)
[2023-03-05] MEDS: Apixaban 5 MG Tab PO SCH ×2 (08:18→20:57)
[2023-03-05] MEDS: levETIRAcetam 250 MG Tab PO SCH ×2 (08:18→20:57)
[2023-03-05] MEDS: Clopidogrel 75 MG Tab PO SCH (08:18)
[2023-03-05] MEDS: Pantoprazole 40 MG Tab.CR PO SCH (08:18)
[2023-03-05] MEDS: Potassium Chloride 20 MEQ Tab.ER PO SCH ×2 (08:18→20:57)
[2023-03-05] MEDS: atorvaSTATin 20 MG Tab PO SCH (08:18)
[2023-03-05] MEDS: Bisacodyl 5 MG Tab PO SCH ×2 (08:18→20:57)
[2023-03-05] MEDS: Multivitamins with Iron/Calcium/Folic Acid/Minerals Tab PO SCH (08:18)
[2023-03-05] MEDS: Ferrous Sulfate 325 MG Tab PO SCH (08:19)
[2023-03-05] MEDS: Spironolactone 25 MG Tab PO SCH (08:19)
[2023-03-05] MEDS: Insulin Glargine,Human Rec. Analog 100 Units/ML 3 ML Pen SUBCUT SCH (20:55)
[2023-03-05] MEDS: traZODone 50 MG Tab PO SCH (20:57)
[2023-03-06] MEDS: Insulin Lispro 100 Unit/ML 3 ML KwikPen SUBCUT SCH (07:38)
[2023-03-06] MEDS: Sucralfate 1 GM Tab PO SCH (07:39)
[2023-03-06] MEDS: levETIRAcetam 250 MG Tab PO SCH (08:40)
[2023-03-06] MEDS: Gabapentin 100 MG Cap PO SCH (08:40)
[2023-03-06] MEDS: Spironolactone 25 MG Tab PO SCH (08:40)
[2023-03-06] MEDS: Bisacodyl 5 MG Tab PO SCH (08:41)
[2023-03-06] MEDS: atorvaSTATin 20 MG Tab PO SCH (08:41)
[2023-03-06] MEDS: Pantoprazole 40 MG Tab.CR PO SCH (08:41)
[2023-03-06] MEDS: Clopidogrel 75 MG Tab PO SCH (08:41)
[2023-03-06] MEDS: Ferrous Sulfate 325 MG Tab PO SCH (08:42)
[2023-03-06] MEDS: Apixaban 5 MG Tab PO SCH (08:42)
[2023-03-06] MEDS: Sennosides 8.6 MG Tab PO SCH (08:42)
[2023-03-06] MEDS: Potassium Chloride 20 MEQ Tab.ER PO SCH (08:42)
[2023-03-06] MEDS: Multivitamins with Iron/Calcium/Folic Acid/Minerals Tab PO SCH (08:43)
[2023-03-06] MEDS: Amiodarone 200 MG Tab PO SCH (08:44)
== END 2023-03-06 11:35 | disposition home or self-care (01) | DRG 638 ==
LOC: JP.MS 12:51
PROVIDERS: ADMIT Hospitalist; ATTEND Internal Medicine
DX: E11.69 Type 2 diabetes mellitus with other specified complication (principal); I50.32 Chronic diastolic (congestive) heart failure; M86.8X7 Other osteomyelitis, ankle and foot; I25.10 Atherosclerotic heart disease of native coronary artery without angina pectoris; E11.51 Type 2 diabetes mellitus with diabetic peripheral angiopathy without gangrene; E11.22 Type 2 diabetes mellitus with diabetic chronic kidney disease; N18.32 Chronic kidney disease, stage 3b; I48.91 Unspecified atrial fibrillation; G40.909 Epilepsy, unspecified, not intractable, without status epilepticus; Z79.01 Long term (current) use of anticoagulants; Z79.899 Other long term (current) drug therapy; Z79.4 Long term (current) use of insulin; Z98.890 Other specified postprocedural states; Z89.431 Acquired absence of right foot; Z88.1 Allergy status to other antibiotic agents; Z88.7 Allergy status to serum and vaccine; Z88.8 Allergy status to other drugs, medicaments and biological substances; Z79.02 Long term (current) use of antithrombotics/antiplatelets; Z86.73 Personal history of transient ischemic attack (TIA), and cerebral infarction without residual deficits
CPT/HCPCS: 36415; 80053; 80202; 82565; 82947; 83735; 85027; 97110-GO; 97110-GP; 97161-GP; 97165-GO; 97530-GO; 97530-GP; A9270-GY; J1642; J1815; J1815-GY; J3370; J7050